=== PATIENT | male | born 1970 | race Caucasian/White ===

== ENCOUNTER 2021-08-25 09:14 | Emergency (ER) | payer BC, OTHER ==
[~2021-08-25] VITALS: Ht 188 cm; Wt 96.2 kg
[2021-08-25] MEDS ORDERED: IBUP-2070 PO (09:50)
[2021-08-25 10:25] VITALS: BP 145/92
== END 2021-08-25 10:26 | disposition home or self-care (01) ==
LOC: EDH 09:14
DX: S97.82XA Crushing injury of left foot, initial encounter (principal); Z91.018 Allergy to other foods; Z90.89 Acquired absence of other organs; Z98.890 Other specified postprocedural states; W20.8XXA Other cause of strike by thrown, projected or falling object, initial encounter; Y93.89 Activity, other specified; Y92.89 Other specified places as the place of occurrence of the external cause; Y99.8 Other external cause status
CPT/HCPCS: 73630